=== PATIENT | female | born 1950 | race Caucasian/White ===

== ENCOUNTER → 2016-10-24 | Outpatient (CLI) | payer OTHER ==
--- NOTE | 2016-10-24 17:16 | US ---
Right Breast Ultrasound October 24, 2016 Indication: Palpable lump anterior right breast. Technique: The anterior right breast was scanned with a high-resolution linear transducer by the sono grapher and or. COMPARISON: Bilateral diagnostic mammograms performed October 24, 2016 and right breast ultrasound da adams 03/31/2011. Findings: The palpable lump corresponds to a normal fat lobule in the upper inner right breast 2:00 p osition 3 cm from the nipple. No cyst, mass or architectural distortion suspicious for malignancy. Impression: Normal fat lobule corresponds to palpable lump. No evidence of malignancy. BI-RADS 1: Negative Recommendation: Clinical follow up. Routine bilateral mammographic screening due in October 2017 The negative results and recommendations were discussed with the patient at time of study completion.
--- NOTE | 2016-10-24 17:18 | MA ---
Bilateral Diagnostic Digital Mammogram With Tomosynthesis and iCAD 10/24/2016 Indication: Palpable lump near right nipple. Due for bilateral screening mammography. Technique: Standard digital CC projections were obtained. Digital breast tomosynthesis was performed in the MLO projection with reconstruction at 1.0 mm slice thickness. Composite MLO views were recons tructed. This examination was processed by the iCAD computer-aided detection system. A triangular mar ker was placed on the skin along the inner aspect of the right nipple. Comparison: March 2011, April 2010, and January 2009. Breast density: Type C. Findings: CAD was reviewed. No suspicious microcalcifications, mass, or architectural distortion. Spe cifically, no abnormality in the anterior inner right breast to correspond with the palpable lump. Impression: Negative mammograms. Recommendation: Proceed with right breast ultrasound today to optimally characterize palpable lump. BI-RADS 0: Needs additional imaging evaluation. [facility] will send a result letter to the patient. Negative mammography should not preclude additional workup of a clinically suspicious finding. The patient's information is entered into a reminder system with a target due date for her next mammo gram.
== END ==
LOC: FIMAGING 09:55
PROVIDERS: ATTEND Internal Medicine
DX: Z12.39 Encounter for other screening for malignant neoplasm of breast (principal); N63 Unspecified lump in breast
CPT/HCPCS: 76641; G0204; G0279

== ENCOUNTER → 2016-12-12 | Outpatient (CLI) | payer OTHER ==
[~2016-12-12] MED LIST: IOPAMIDOL (ISOVUE-300) 100 ML BTL IV ONE
== END ==
LOC: FIMAGING 09:58
PROVIDERS: ATTEND Surgery
DX: R91.8 Other nonspecific abnormal finding of lung field (principal); K76.89 Other specified diseases of liver
CPT/HCPCS: 71260; Q9967

== ENCOUNTER → 2017-12-18 | Outpatient (CLI) | payer OTHER | LOC: FIMAGING 07:50 | PROVIDERS: ATTEND Internal Medicine | DX: Z12.31 Encounter for screening mammogram for malignant neoplasm of breast (principal); Z13.820 Encounter for screening for osteoporosis; M85.89 Other specified disorders of bone density and structure, multiple sites; Z78.0 Asymptomatic menopausal state; Z80.3 Family history of malignant neoplasm of breast ==

== ENCOUNTER → 2018-01-01 | Outpatient (CLI) | payer OTHER ==
[~2018-01-01] MED LIST changes: -IOPAMIDOL (ISOVUE-300) 100 ML BTL IV ONE; +IOPAMIDOL (ISOVUE-300) 100 ML BTL ONE
== END ==
LOC: FIMAGING 08:49
PROVIDERS: ATTEND Surgery
DX: R91.1 Solitary pulmonary nodule (principal); Z85.118 Personal history of other malignant neoplasm of bronchus and lung
CPT/HCPCS: 71270; Q9967

== ENCOUNTER → 2019-01-27 | Outpatient (CLI) | payer OTHER | LOC: FIMAGING 11:45 | PROVIDERS: ATTEND Internal Medicine | DX: Z12.31 Encounter for screening mammogram for malignant neoplasm of breast (principal) ==